=== PATIENT | male | born 1960 | race American Indian/Alaskan Native ===

== ENCOUNTER 2017-02-17 07:48 | Emergency (ER) | payer SELFPAY ==
--- NOTE | 2017-02-17 08:51 | XRay Report ---
LEFT FINGERS, 3 VIEWS History: Left thumb pain and swelling. Findings: There appears to be mild subluxation at the first metacarpophalangeal joint. Mild degenerative changes are also suspected. The remaining joint spaces are unremarkable. No fracture or bone lesion. Mild soft tissue swelling of the thumb is also suspected. Impression: Mild subluxation at the first metacarpophalangeal joint is suspected. Please correlate with the patient and consider further imaging with MRI if needed. No displaced fracture is appreciated.
[2017-02-17] MEDS ORDERED: TORADOL IM ONE (11:37)
--- NOTE | 2017-02-17 11:51 | Emergency Department Report ---
HPI - General Chief Complaint: Pain General Time Seen by Provider: 02/17/17 11:29 - HPI HPI: Loli 26 The patient is a 56-year-old male presenting with a chief complaint of joint pain. The patient states the past 3 months he has had pain and swelling in both ankles and both hands. The patient states he went to a free health screening at a adventism was given a "water pill", ibuprofen and tramadol. The patient states medications help temporarily of the swelling decreased for approximately one week. Patient states the symptoms then returned with pain in all joints. Patient states the pain is worse with movement. Patient denies shortness of breath or fever. The patient gives his pain a score of 8-9/10 Location: All joints Duration: 3 months Quality: Pain Severity: 8-9/10 Modifying factors: Movement increases pain Context: [see above] Mode of transportation: [not driving] ED Past Medical Hx - Past Medical History Hx Hypertension: Yes Additional medical history: OBESITY - Surgical History Past Surgical History?: No Additional Surgical History: RIGHT ELBOW SURGERY. HERNIA REPAIR - Family History Family history: no significant - Social History Smoking Status: Current Every Day Smoker Substance Use Type: Alcohol (occasional), Marijuana, Prescribed - Medications Home Medications: Home Medications Medication Instructions Recorded Confirmed Last Taken Type Ibuprofen [Motrin] 600 mg PO BID PRN 02/17/17 02/17/17 02/15/17 13:00 History Lisinopril [Zestril] 20 mg PO QDAY 02/17/17 02/17/17 02/17/17 07:00 History Prednisone [predniSONE 10 mg 10 mg PO .TAPER #1 tab.ds.pk 02/17/17 Unknown Rx (6-Day Pack, 21 Tabs)] Triamter/Hctz 37.5-25 mg 75 mg PO QDAY 02/17/17 02/17/17 02/17/17 03:00 History traMADol [Ultram 50 MG tab] 50 mg PO BID PRN #30 tablet 02/17/17 Unknown Rx traMADol [Ultram] 50 mg PO Q6HR PRN #20 tablet 02/17/17 Unknown Rx ED Review of Systems ROS: Stated complaint: JOINT PAIN Other details as noted in HPI Comment: All other systems reviewed and negative Constitutional: denies: chills, fever Eyes: denies: eye pain, eye discharge, vision change ENT: denies: ear pain, throat pain Respiratory: denies: cough, shortness of breath, wheezing Cardiovascular: denies: chest pain, palpitations Endocrine: no symptoms reported Gastrointestinal: denies: abdominal pain, nausea, diarrhea Genitourinary: denies: urgency, dysuria Musculoskeletal: arthralgia Skin: denies: rash, lesions Neurological: denies: headache, weakness, paresthesias Psychiatric: denies: anxiety, depression Hematological/Lymphatic: denies: easy bleeding, easy bruising Physical Exam - Physical Exam Vital Signs: Vital Signs 02/17/17 08:06 Temperature 98.7 F Pulse Rate 99 H Respiratory 18 Rate Blood Pressure 108/73 O2 Sat by Pulse 97 Oximetry Physical Exam: GENERAL: The patient is well-developed well-nourished male sitting on stretcher not appearing to be in acute distress. [] HEENT: Normocephalic. Atraumatic. Extraocular motions are intact. Patient has moist mucous membranes. NECK: Supple. Trachea midline CHEST/LUNGS: Clear to auscultation. There is no respiratory distress noted. HEART/CARDIOVASCULAR: Regular. There is no tachycardia. There is no gallop rub or murmur. ABDOMEN: Abdomen is soft, nontender. Patient has normal bowel sounds. There is no abdominal distention. SKIN: There is no rash. There is no pitting edema appreciated. There is no diaphoresis. NEURO: The patient is awake, alert, and oriented. The patient is cooperative. The patient has normal speech MUSCULOSKELETAL: There is no increased warmth of the joints appreciated. There is no evidence of acute injury. ED Course Vital Signs 02/17/17 08:06 Temperature 98.7 F Pulse Rate 99 H Respiratory 18 Rate Blood Pressure 108/73 O2 Sat by Pulse 97 Oximetry ED Medical Decision Making - Lab Data Result diagrams: 02/17/17 11:45 02/17/17 11:45 Laboratory Tests 02/17/17 02/17/17 11:45 11:45 WBC 15.5 H RBC 4.46 Hgb 14.0 Hct 41.5 MCV 93 MCH 31 MCHC 34 RDW 14.7 Plt Count 516 H Lymph % (Auto) 13.3 L [place] % (Auto) 6.6 Eos % (Auto) 0.8 Baso % (Auto) 0.4 Lymph # 2.1 [place] # 1.0 H Eos # 0.1 Baso # 0.1 Seg Neutrophils % 78.9 H Seg Neutrophils # 12.2 H Sodium 133 L Potassium 4.0 Chloride 93.0 L Carbon Dioxide 21 L Anion Gap 23 BUN 31 H Creatinine 1.8 H Estimated GFR 48 BUN/Creatinine Ratio 17.22 Glucose 85 Calcium 9.2 Total Bilirubin 0.50 AST 13 ALT 12 Alkaline Phosphatase 125 NT-Pro-B Natriuret Pep 17.33 Total Protein 8.6 H Albumin 4.3 Albumin/Globulin Ratio 1.0 - Radiology Data Radiology results: report reviewed (left thumb x-ray), image reviewed (left thumb x-ray) interpreted by me: Left thumb [id number] of left thumb MCP. No acute fracture Left thumb x-ray (read by radiologist)-mild subluxation of the first metacarpal phalangeal joint is suspected. This controlled with the patient consider further imaging with MRI if needed. No displaced fractures appreciated. - Differential Diagnosis polyarthralgia, rheumatoid arthritis, gout, CHF, hypoalbuminemia Critical care attestation.: If time is entered above; I have spent that time in minutes in the direct care of this critically ill patient, excluding procedure time. ED Disposition Clinical Impression: Polyarthralgia, Subluxation of left thumb, Renal insufficiency Disposition: DC-01 TO HOME OR SELFCARE Is pt being admited?: No Does the pt Need Aspirin: No Condition: Stable Instructions: Arthralgia (ED) Additional Instructions: Return to the emergency department immediately should you develop worsening symptoms, fever, inability to tolerate food or liquid or any other concerns. Prescriptions: Prednisone [predniSONE 10 mg (6-Day Pack, 21 Tabs)] 10 mg PO .TAPER #1 tab.ds.pk traMADol [Ultram] 50 mg PO Q6HR PRN #20 tablet PRN Reason: Pain traMADol [Ultram 50 MG tab] 50 mg PO BID PRN #30 tablet PRN Reason: Pain Referrals: [facility] [Outside] - 3-5 Days (Please follow up at the [facility] to be established as a patient) ANABELA ALVES MD [Staff Physician] - 3-5 Days (Dr. Alves is an orthopedic surgeon. Please follow up with him for further evaluation of your left thumb subluxation) BALBINA WAGNER MD [Staff Physician] - 3-5 Days (Dr. Wagner is a turn down man. Please follow up with him for further evaluation of your renal insufficiency) Time of Disposition: 12:38
[2017-02-17 11:59] LABS: Basophils % (Auto) 0.4 % (0.0-1.8); Eosinophils % (Auto) 0.8 % (0.0-4.3); Hematocrit 41.5 % (35.5-45.6); Mean Corpuscular HGB Conc 34 % (32-34); Mean Corpuscular Hemoglobin 31 pg (28-32); Mean Corpuscular Volume 93 fl (84-94); Platelet Count 516 K/mm3 (140-440); Red Blood Count 4.46 M/mm3 (3.65-5.03); Red Cell Distribution Width 14.7 % (13.2-15.2); White Blood Count 15.5 K/mm3 (4.5-11.0)
[2017-02-17 12:16] LABS: Albumin 4.3 g/dL (3.9-5); BUN/Creatinine Ratio 17.22; Bilirubin,Total 0.5 mg/dL (0.1-1.2); Calcium 9.2 mg/dL (8.4-10.2); Total Protein 8.6 g/dL (6.3-8.2)
[2017-02-17 14:51] VITALS: BP 110/74
== END 2017-02-17 14:00 | disposition home or self-care (01) ==
LOC: ED 07:48
DX: M25.50 Pain in unspecified joint (principal); S63.102A Unspecified subluxation of left thumb, initial encounter; N28.9 Disorder of kidney and ureter, unspecified; X58.XXXA Exposure to other specified factors, initial encounter; Y93.9 Activity, unspecified; Y92.9 Unspecified place or not applicable; Y99.9 Unspecified external cause status; F17.200 Nicotine dependence, unspecified, uncomplicated; F12.10 Cannabis abuse, uncomplicated
CPT/HCPCS: 29125; 36415; 73140; 80053; 83880; 85025; 96372; 99283; J1885

== ENCOUNTER 2017-03-04 08:03 | Emergency (ER) | payer SELFPAY ==
--- NOTE | 2017-03-04 08:54 | Emergency Department Report ---
- General Chief complaint: Pain General Stated complaint: JOINT PAIN Time Seen by Provider: 03/04/17 08:38 Source: patient, old records reviewed Mode of arrival: Ambulatory Limitations: No Limitations - History of Present Illness -: Gradual, month(s) Location: generalized Severity: moderate Quality: aching Consistency: constant, intermittent Improves with: medication (prednisone) Worsens with: none Context: other (no injury) Associated Symptoms: denies: chest pain, confusion, dark stools, diaphoresis, dysuria, easy bruising, fever/chills, headaches, loss of appetite, nausea/ vomiting, myalgias, rash, shortness of breath, syncope - Related Data Home Medications Medication Instructions Recorded Confirmed Last Taken Ibuprofen [Motrin] 600 mg PO BID PRN 02/17/17 02/17/17 02/15/17 13:00 Lisinopril [Zestril] 20 mg PO QDAY 02/17/17 02/17/17 02/17/17 07:00 Triamter/Hctz 37.5-25 mg 75 mg PO QDAY 02/17/17 02/17/17 02/17/17 03:00 Previous Rx's Medication Instructions Recorded Last Taken Type Prednisone [predniSONE 10 mg 10 mg PO .TAPER #1 tab.ds.pk 02/17/17 Unknown Rx (6-Day Pack, 21 Tabs)] traMADol [Ultram 50 MG tab] 50 mg PO BID PRN #30 tablet 02/17/17 Unknown Rx traMADol [Ultram] 50 mg PO Q6HR PRN #20 tablet 02/17/17 Unknown Rx Prednisone [predniSONE 10 mg 10 mg PO .TAPER #1 tab.ds.pk 03/04/17 Unknown Rx (6-Day Pack, 21 Tabs)] traMADol [Ultram] 50 mg PO Q6HR PRN #10 tablet 03/04/17 Unknown Rx Allergies Allergy/AdvReac Type Severity Reaction Status Date / Time No Known Allergies Allergy Unverified 02/17/17 07:55 ED Review of Systems ROS: Stated complaint: JOINT PAIN Other details as noted in HPI Comment: Unobtainable due to pts medical conditions Constitutional: no symptoms reported, see HPI Eyes: as per HPI. denies: eye pain ENT: as per HPI. denies: ear pain, throat pain Respiratory: no symptoms reported, see HPI. denies: cough, orthopnea Cardiovascular: as per HPI. denies: chest pain, palpitations, dyspnea on exertion, orthopnea Endocrine: no symptoms reported, see HPI. denies: excessive sweating, flushing Gastrointestinal: as per HPI. denies: abdominal pain, nausea, vomiting Genitourinary: as per HPI. denies: urgency, dysuria Musculoskeletal: as per HPI, arthralgia (gen joint pain), other (here for same recently). denies: back pain Skin: as per HPI. denies: rash, lesions Neurological: as per HPI. denies: headache, weakness Psychiatric: as per HPI. denies: anxiety, depression Hematological/Lymphatic: as per HPI. denies: easy bleeding ED Past Medical Hx - Past Medical History Previous Medical History?: Yes Hx Hypertension: Yes Additional medical history: OBESITY - Surgical History Past Surgical History?: Yes Additional Surgical History: RIGHT ELBOW SURGERY. HERNIA REPAIR - Family History Family history: no significant - Social History Smoking Status: Current Every Day Smoker Substance Use Type: Alcohol, Marijuana - Medications Home Medications: Home Medications Medication Instructions Recorded Confirmed Last Taken Type Ibuprofen [Motrin] 600 mg PO BID PRN 02/17/17 02/17/17 02/15/17 13:00 History Lisinopril [Zestril] 20 mg PO QDAY 02/17/17 02/17/17 02/17/17 07:00 History Prednisone [predniSONE 10 mg 10 mg PO .TAPER #1 tab.ds.pk 02/17/17 Unknown Rx (6-Day Pack, 21 Tabs)] Triamter/Hctz 37.5-25 mg 75 mg PO QDAY 02/17/17 02/17/17 02/17/17 03:00 History traMADol [Ultram 50 MG tab] 50 mg PO BID PRN #30 tablet 02/17/17 Unknown Rx traMADol [Ultram] 50 mg PO Q6HR PRN #20 tablet 02/17/17 Unknown Rx Prednisone [predniSONE 10 mg 10 mg PO .TAPER #1 tab.ds.pk 03/04/17 Unknown Rx (6-Day Pack, 21 Tabs)] traMADol [Ultram] 50 mg PO Q6HR PRN #10 tablet 03/04/17 Unknown Rx ED Physical Exam - General Limitations: No Limitations General appearance: alert, in no apparent distress - Head Head exam: Present: atraumatic, normocephalic - Eye Eye exam: Present: PERRL - ENT ENT exam: Present: normal exam, mucous membranes moist - Neck Neck exam: Present: normal inspection. Absent: tenderness, meningismus, full ROM, lymphadenopathy, thyromegaly - Respiratory Respiratory exam: Present: normal lung sounds bilaterally. Absent: respiratory distress, wheezes, rales, rhonchi, stridor - Cardiovascular Cardiovascular Exam: Present: regular rate, normal rhythm (90 on exam) - GI/Abdominal GI/Abdominal exam: Present: soft, normal bowel sounds. Absent: distended, tenderness, guarding, rebound, rigid, diminished bowel sounds - Rectal Rectal exam: Present: deferred - Extremities Exam Extremities exam: Present: normal inspection, full ROM. Absent: tenderness, normal capillary refill, pedal edema, joint swelling, calf tenderness - Back Exam Back exam: Present: normal inspection, full ROM. Absent: tenderness, CVA tenderness (R) - Neurological Exam Neurological exam: Present: alert, oriented X3, CN II-XII intact, normal gait, reflexes normal - Psychiatric Psychiatric exam: Present: normal affect, normal mood. Absent: depressed, agitated - Skin Skin exam: Present: warm, dry, intact - Assessment Assessment Interval: Baseline - Level of Consciousness 1a. Level of Consciousness: alert - LOC Questions 1b. LOC Questions: answers correctly - LOC Command 1c. LOC Commands: performs tasks correctly - Best Gaze 2. Best Gaze: normal - Visual 3. Visual: no visual loss - Facial Palsy 4. Facial Palsy: normal symmetrical movement - Motor Arm 5b. Motor Arm Right: no drift 5a. Motor Arm Left: no drift - Motor Leg 6a. Motor Leg Left: no drift 6b. Motor Leg Right: no drift - Limb Ataxia 7. Limb Ataxia: absent - Sensory 8. Sensory: normal - Best Language 9. Best Language: no aphasia - Dysarthria 10. Dysarthria: normal - Extinction and Inattention 11. Extinction/Inattention: no abnormality - Scoring Total Score: 0 Stroke Severity: No Stroke Symptoms ED Course Vital Signs 03/04/17 03/04/17 03/04/17 08:07 09:04 11:55 Temperature 99.2 F 98.6 F Pulse Rate 94 H 90 Respiratory 16 18 19 Rate Blood Pressure 111/73 Blood Pressure 105/77 [Left] O2 Sat by Pulse 98 98 Oximetry - Reevaluation(s) Reevaluation #1: 03/04/17 seen here recent for same waiting on ins card from new job gen joint pain no trauma see note abc intact vss no cp no sob non ill non toxic appearing no fever ambulatory Reevaluation #2: 03/04/17 labs noted discussed with Dr King medications and dc home w dc poc pt verbalizes understanding of poc ED Medical Decision Making - Lab Data Result diagrams: 03/04/17 09:12 03/04/17 09:12 - Medical Decision Making Case reviewed with Dr King. no antibiotics meds w dc poc - Differential Diagnosis ro systemic disease Critical care attestation.: If time is entered above; I have spent that time in minutes in the direct care of this critically ill patient, excluding procedure time. 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
[2017-03-04 09:24] LABS: Basophils % (Auto) 0.6 % (0.0-1.8); Eosinophils % (Auto) 0.5 % (0.0-4.3); Hematocrit 39.1 % (35.5-45.6); Mean Corpuscular HGB Conc 33 % (32-34); Mean Corpuscular Hemoglobin 31 pg (28-32); Mean Corpuscular Volume 93 fl (84-94); Platelet Count 471 K/mm3 (140-440); White Blood Count 18.9 K/mm3 (4.5-11.0)
[2017-03-04 09:31] LABS: Bilirubin,Urine NEG (Negative); Blood,Urine NEG (Negative); Ketones,Urine NEG (Negative); Leukocyte Esterase,Urine NEG (Negative); Nitrite,Urine NEG (Negative); Protein,Urine <15 mg/dL mg/dL (Negative); Urobilinogen,Urine < 2.0 mg/dL (<2.0); WBC,Urine < 1.0 /HPF (0.0-6.0)
[2017-03-04 09:45] LABS: Albumin 4.1 g/dL (3.9-5); Albumin/Globulin Ratio 1.1 %; BUN/Creatinine Ratio 20.66; Bilirubin,Total 0.2 mg/dL (0.1-1.2); Calcium 9.2 mg/dL (8.4-10.2); Chloride 95.6 mmol/L (98-107); Potassium 3.7 mmol/L (3.6-5.0); Total Protein 7.7 g/dL (6.3-8.2)
[2017-03-04 10:13] LABS: Erythrocyte Sedimentation Rate 45 mm/Hr (0-20)
--- NOTE | 2017-03-04 10:48 | XRay Report ---
CHEST TWO VIEWS: 03/04/17 08:03:00 CLINICAL: Hypertension. COMPARISON: None FINDINGS: Normal heart and pulmonary vasculature. The lungs are mildly hyperexpanded and clear.The bones and soft tissues are unremarkable. IMPRESSION: Mild pulmonary hyperinflation but otherwise normal.
[2017-03-04 11:56] VITALS: BP 105/77
== END 2017-03-04 12:19 | disposition home or self-care (01) ==
LOC: ED 08:03
DX: M19.90 Unspecified osteoarthritis, unspecified site (principal); R68.84 Jaw pain; I10 Essential (primary) hypertension; F17.200 Nicotine dependence, unspecified, uncomplicated; F12.10 Cannabis abuse, uncomplicated
CPT/HCPCS: 36415; 71020; 80053; 81001; 84550; 85025; 85652; 86140; 86618; 96372; 99284; J2930

== ENCOUNTER 2017-04-09 07:14 | Inpatient (IN) | payer OTHER ==
[2017-04-09 11:06] LABS: Hematocrit 34.7 % (35.5-45.6); Hemoglobin 11.9 gm/dl (11.8-15.2); Mean Corpuscular HGB Conc 34 % (32-34); Mean Corpuscular Hemoglobin 32 pg (28-32); Mean Corpuscular Volume 94 fl (84-94); Platelet Count 373 K/mm3 (140-440); Red Blood Count 3.68 M/mm3 (3.65-5.03); White Blood Count 15.9 K/mm3 (4.5-11.0)
[2017-04-09 11:27] LABS: Calcium 8.8 mg/dL (8.4-10.2); Chloride 94.5 mmol/L (98-107); Potassium 3.9 mmol/L (3.6-5.0)
--- NOTE | 2017-04-09 11:50 | Emergency Department Report ---
ED General Adult HPI - General Chief complaint: Pain General Stated complaint: JOINT PAIN Time Seen by Provider: 04/09/17 10:37 Source: patient Mode of arrival: Ambulatory Limitations: No Limitations - History of Present Illness Initial comments: PT c/o joint pain and swelling x a few days. PT states his feet and ankles are swollen. PT states he has had the pain for about three days and he noticed the swelling yesterday. PT states that he was seen in ED 1 month ago and dx with RA. PT states at that time, he was having pain and swelling in his upper ext. PT states he was given RX for steroids and Ultram. PT states Ultram does not help his pain. PT states the steroids helped decrease his pain. PT states he was given follow up with PCP and Medical Dir but due to insurance issues, he has not followed up. PT states he has an appointment with PCP MAY 04. MD Complaint: swelling -: Gradual, days(s) Location: left, right, lower extremity Severity scale (0 -10): 8 Quality: constant (dull pain ) Consistency: constant Improves with: none Worsens with: movement, other (ambulation ) Associated Symptoms: denies other symptoms. denies: chest pain, fever/chills, nausea/vomiting, shortness of breath, weakness Treatments Prior to Arrival: none - Related Data Home Medications Medication Instructions Recorded Confirmed Last Taken Ibuprofen [Motrin] 600 mg PO BID PRN 02/17/17 04/09/17 02/15/17 13:00 Lisinopril [Zestril] 20 mg PO QDAY 02/17/17 04/09/17 02/17/17 07:00 Triamter/Hctz 37.5-25 mg 75 mg PO QDAY 02/17/17 04/09/17 02/17/17 03:00 Previous Rx's Medication Instructions Recorded Last Taken Type Prednisone [predniSONE 10 mg 10 mg PO .TAPER #1 tab.ds.pk 02/17/17 Unknown Rx (6-Day Pack, 21 Tabs)] traMADol [Ultram 50 MG tab] 50 mg PO BID PRN #30 tablet 02/17/17 Unknown Rx traMADol [Ultram] 50 mg PO Q6HR PRN #20 tablet 02/17/17 Unknown Rx Prednisone [predniSONE 10 mg 10 mg PO .TAPER #1 tab.ds.pk 03/04/17 Unknown Rx (6-Day Pack, 21 Tabs)] traMADol [Ultram] 50 mg PO Q6HR PRN #10 tablet 03/04/17 Unknown Rx oxyCODONE /ACETAMINOPHEN [Percocet 1 tab PO Q6H PRN #10 tablet 04/10/17 Unknown Rx 5/325 mg] predniSONE [Deltasone] 10 mg PO QDAY #5 tab 04/10/17 Unknown Rx predniSONE [Deltasone] 20 mg PO QDAY #5 tab 04/10/17 Unknown Rx predniSONE [Deltasone] 50 mg PO QDAY #5 tab 04/10/17 Unknown Rx Allergies Allergy/AdvReac Type Severity Reaction Status Date / Time No Known Allergies Allergy Unverified 02/17/17 07:55 ED Review of Systems ROS: Stated complaint: JOINT PAIN Other details as noted in HPI Comment: All other systems reviewed and negative Constitutional: denies: chills, fever, malaise Respiratory: denies: shortness of breath, SOB with exertion, SOB at rest Cardiovascular: edema. denies: chest pain Musculoskeletal: as per HPI ED Past Medical Hx - Past Medical History Previous Medical History?: Yes Hx Hypertension: Yes Additional medical history: OBESITY, RA - Surgical History Past Surgical History?: Yes Additional Surgical History: RIGHT ELBOW SURGERY. HERNIA REPAIR - Social History Smoking Status: Current Every Day Smoker Substance Use Type: Alcohol - Medications Home Medications: Home Medications Medication Instructions Recorded Confirmed Last Taken Type Ibuprofen [Motrin] 600 mg PO BID PRN 02/17/17 04/09/17 02/15/17 13:00 History Lisinopril [Zestril] 20 mg PO QDAY 02/17/17 04/09/17 02/17/17 07:00 History Prednisone [predniSONE 10 mg 10 mg PO .TAPER #1 tab.ds.pk 02/17/17 04/09/17 Unknown Rx (6-Day Pack, 21 Tabs)] Triamter/Hctz 37.5-25 mg 75 mg PO QDAY 02/17/17 04/09/17 02/17/17 03:00 History traMADol [Ultram 50 MG tab] 50 mg PO BID PRN #30 tablet 02/17/17 04/09/17 Unknown Rx traMADol [Ultram] 50 mg PO Q6HR PRN #20 tablet 02/17/17 04/09/17 Unknown Rx Prednisone [predniSONE 10 mg 10 mg PO .TAPER #1 tab.ds.pk 03/04/17 04/09/17 Unknown Rx (6-Day Pack, 21 Tabs)] traMADol [Ultram] 50 mg PO Q6HR PRN #10 tablet 03/04/17 04/09/17 Unknown Rx oxyCODONE /ACETAMINOPHEN [Percocet 1 tab PO Q6H PRN #10 tablet 04/10/17 Unknown Rx 5/325 mg] predniSONE [Deltasone] 10 mg PO QDAY #5 tab 04/10/17 Unknown Rx predniSONE [Deltasone] 20 mg PO QDAY #5 tab 04/10/17 Unknown Rx predniSONE [Deltasone] 50 mg PO QDAY #5 tab 04/10/17 Unknown Rx ED Physical Exam - General Limitations: No Limitations General appearance: alert, in no apparent distress, obese (Morbidly ) - Head Head exam: Present: atraumatic, normocephalic, normal inspection - Eye Eye exam: Present: normal appearance, PERRL, EOMI. Absent: conjunctival injection - ENT ENT exam: Present: normal exam, mucous membranes moist, normal external ear exam - Neck Neck exam: Present: normal inspection, full ROM - Respiratory Respiratory exam: Present: normal lung sounds bilaterally. Absent: respiratory distress, chest wall tenderness - Cardiovascular Cardiovascular Exam: Present: regular rate, normal rhythm, normal heart sounds - GI/Abdominal GI/Abdominal exam: Present: soft. Absent: tenderness - Extremities Exam Extremities exam: Present: pedal edema. Absent: calf tenderness - Expanded Upper Extremity Exam Left General: Present: normal inspection Right General: Present: normal inspection - Expanded Lower Extremity Exam Left Lower Leg exam: Present: normal inspection. Absent: tenderness, erythema Ankle exam: Present: swelling. Absent: tenderness Foot/Toe exam: Present: full ROM, swelling. Absent: tenderness Neuro vascular tendon exam: Present: no vascular compromise Right Lower Leg exam: Present: normal inspection. Absent: tenderness, swelling Ankle exam: Present: swelling. Absent: normal inspection, tenderness Foot/Toe exam: Present: swelling. Absent: normal inspection, tenderness Neuro vascular tendon exam: Present: no vascular compromise - Back Exam Back exam: Present: normal inspection, full ROM. Absent: tenderness, CVA tenderness (R), CVA tenderness (L) - Neurological Exam Neurological exam: Present: alert, oriented X3, normal gait - Psychiatric Psychiatric exam: Present: normal affect, normal mood - Skin Skin exam: Present: warm, dry, intact ED Course Vital Signs 04/09/17 04/09/17 07:44 14:44 Temperature 98.8 F 97.6 F Pulse Rate 97 H 90 Respiratory 16 18 Rate Blood Pressure 110/59 Blood Pressure 114/64 [Right] O2 Sat by Pulse 97 99 Oximetry - Reevaluation(s) Reevaluation #1: 04/09/17 12:24 PT aware of abnormal lab findings. PT agrees to admission. 04/09/17 12:28 At this time, pt states on he was taking 2 tabs of Mortin every 2.5 hours 3-4 times. PT states he also took a few pills on Monday. - Consultations Consultation #1: 04/09/17 12:33 Dr Tang- will accept - Pulse Oximetry Interpretation Digit-Finger Initial Pulse Oximetry Readin Actions Taken: none ED Medical Decision Making - Lab Data Result diagrams: 04/10/17 07:46 04/10/17 07:46 Labs 04/09/17 04/09/17 10:49 10:49 WBC 15.9 H RBC 3.68 Hgb 11.9 Hct 34.7 L MCV 94 MCH 32 MCHC 34 RDW 16.0 H Plt Count 373 Add Manual Diff Complete Total Counted 100 Seg Neuts % (Manual) 80.0 H Band Neutrophils % 1.0 Lymphocytes % (Manual) 15.0 Reactive Lymphs % (Man) 0 Monocytes % (Manual) 4.0 Eosinophils % (Manual) 0 Basophils % (Manual) 0 Metamyelocytes % 0 Myelocytes % 0 Promyelocytes % 0 Blast Cells % 0 Nucleated RBC % Not Reportable Seg Neutrophils # Man 12.7 H Band Neutrophils # 0.2 Lymphocytes # (Manual) 2.4 Abs React Lymphs (Man) 0.0 Monocytes # (Manual) 0.6 Eosinophils # (Manual) 0.0 Basophils # (Manual) 0.0 Metamyelocytes # 0.0 Myelocytes # 0.0 Promyelocytes # 0.0 Blast Cells # 0.0 WBC Morphology Not Reportable Hypersegmented Neuts Not Reportable Hyposegmented Neuts Not Reportable Hypogranular Neuts Not Reportable Smudge Cells Not Reportable Toxic Granulation Not Reportable Toxic Vacuolation Not Reportable Dohle Bodies Not Reportable Pelger-Huet Anomaly Not Reportable Joseline Rods Not Reportable Platelet Estimate Consistent w auto Clumped Platelets Not Reportable Plt Clumps, EDTA Not Reportable Large Platelets Not Reportable Giant Platelets Not Reportable Platelet Satelliting Not Reportable Plt Morphology Comment Not Reportable RBC Morphology Not Reportable Dimorphic RBCs Not Reportable Polychromasia Not Reportable Hypochromasia Not Reportable Poikilocytosis Not Reportable Anisocytosis 1+ Microcytosis Not Reportable Macrocytosis Not Reportable Spherocytes Not Reportable Pappenheimer Bodies Not Reportable Sickle Cells Not Reportable Target Cells Not Reportable Tear Drop Cells Not Reportable Ovalocytes Not Reportable Helmet Cells Not Reportable [place] Bodies Not Reportable [place] Rings Not Reportable [place] Cells Not Reportable Bite Cells Not Reportable Crenated Cell Not Reportable Elliptocytes Not Reportable Acanthocytes (Spur) Not Reportable Rouleaux Not Reportable Hemoglobin C Crystals Not Reportable Schistocytes Not Reportable Malaria parasites Not Reportable Akbar Bodies Not Reportable Hem Pathologist Commnt No Carbon Dioxide 23 BUN 65 H Creatinine 2.5 H Estimated GFR 33 BUN/Creatinine Ratio 26.00 Glucose 106 H Calcium 8.8 VERBAL REPORT of LABS given NA- 132 K- 3.9 Chloride-94.5 anion gap - [address] King at 1220 04-09-17, who advises of admission due to acute renal failure - Differential Diagnosis RA, OA, renal insuffiency Critical Care Time: No Critical care attestation.: If time is entered above; I have spent that time in minutes in the direct care of this critically ill patient, excluding procedure time. ED Disposition Clinical Impression: Lower extremity edema, Morbid obesity Acute renal failure Qualifiers: Acute renal failure type: unspecified Qualified Code(s): N17.9 - Acute kidney failure, unspecified Disposition: OP ADMIT IP TO THIS HOSP Is pt being admited?: Yes Does the pt Need Aspirin: No Condition: Stable Time of Disposition: 12:40
[2017-04-09 12:01] LABS: Anisocytosis 1+; Basophils % (Manual) 0 % (0.0-1.8); Blastocytes % (Manual) 0 %; Eosinophils % (Manual) 0 % (0.0-4.3)
[2017-04-09 12:02] LABS: Diff Status Complete; Platelet Estimate Consistent w Auto
[2017-04-09] MEDS ORDERED: NACL 0.9% 1000 ML 1,000 ML IV ONE (12:39)
[2017-04-09] MEDS ORDERED: SODIUM CHLORIDE FLUSH SYRINGE 10 ML IV PRN (12:41)
[2017-04-09 13:40] LABS: Bacteria,Urine 1+ /HPF (Negative); Bilirubin,Urine NEG (Negative); Blood,Urine SM (Negative); Ketones,Urine NEG (Negative); Leukocyte Esterase,Urine MOD (Negative); Mucus,Urine FEW /HPF; Nitrite,Urine NEG (Negative); Protein,Urine <15 mg/dL mg/dL (Negative); Urobilinogen,Urine < 2.0 mg/dL (<2.0)
--- NOTE | 2017-04-09 14:32 | History and Physical Report ---
History of Present Illness Date of examination: 04/09/17 Date of admission: 04/09/17 12:41 Medications and Allergies Allergies Allergy/AdvReac Type Severity Reaction Status Date / Time No Known Allergies Allergy Unverified 02/17/17 07:55 Home Medications Medication Instructions Recorded Confirmed Last Taken Type Ibuprofen [Motrin] 600 mg PO BID PRN 02/17/17 04/09/17 02/15/17 13:00 History Lisinopril [Zestril] 20 mg PO QDAY 02/17/17 04/09/17 02/17/17 07:00 History Prednisone [predniSONE 10 mg 10 mg PO .TAPER #1 tab.ds.pk 02/17/17 04/09/17 Unknown Rx (6-Day Pack, 21 Tabs)] Triamter/Hctz 37.5-25 mg 75 mg PO QDAY 02/17/17 04/09/17 02/17/17 03:00 History traMADol [Ultram 50 MG tab] 50 mg PO BID PRN #30 tablet 02/17/17 04/09/17 Unknown Rx traMADol [Ultram] 50 mg PO Q6HR PRN #20 tablet 02/17/17 04/09/17 Unknown Rx Prednisone [predniSONE 10 mg 10 mg PO .TAPER #1 tab.ds.pk 03/04/17 04/09/17 Unknown Rx (6-Day Pack, 21 Tabs)] traMADol [Ultram] 50 mg PO Q6HR PRN #10 tablet 03/04/17 04/09/17 Unknown Rx Active Meds: Active Medications Sodium Chloride (Nacl 0.9% 1000 Ml) 1,000 mls @ 100 mls/hr IV BOLUS ONE Stop: 04/09/17 22:38 Last Admin: 04/09/17 13:15 Dose: 100 mls/hr Sodium Chloride (Sodium Chloride Flush Syringe 10 Ml) 10 ml IV PRN PRN PRN Reason: LINE FLUSH Exam - Constitutional Vitals: Temp Pulse Resp BP Pulse Ox 98.8 F 97 H 16 110/59 97 04/09/17 07:44 04/09/17 07:44 04/09/17 07:44 04/09/17 07:44 04/09/17 07:44 Results - Labs CBC & Chem 7: 04/09/17 10:49 04/09/17 10:49 Labs: Laboratory Last Values WBC 15.9 K/mm3 (4.5-11.0) H 04/09/17 10:49 RBC 3.68 M/mm3 (3.65-5.03) 04/09/17 10:49 Hgb 11.9 gm/dl (11.8-15.2) 04/09/17 10:49 Hct 34.7 % (35.5-45.6) L 04/09/17 10:49 MCV 94 fl (84-94) 04/09/17 10:49 MCH 32 pg (28-32) 04/09/17 10:49 MCHC 34 % (32-34) 04/09/17 10:49 RDW 16.0 % (13.2-15.2) H 04/09/17 10:49 Plt Count 373 K/mm3 (140-440) 04/09/17 10:49 Add Manual Diff Complete 04/09/17 10:49 Total Counted 100 04/09/17 10:49 Seg Neuts % (Manual) 80.0 % (40.0-70.0) H 04/09/17 10:49 Band Neutrophils % 1.0 % 04/09/17 10:49 Lymphocytes % (Manual) 15.0 % (13.4-35.0) 04/09/17 10:49 Reactive Lymphs % (Man) 0 % 04/09/17 10:49 Monocytes % (Manual) 4.0 % (0.0-7.3) 04/09/17 10:49 Eosinophils % (Manual) 0 % (0.0-4.3) 04/09/17 10:49 Basophils % (Manual) 0 % (0.0-1.8) 04/09/17 10:49 Metamyelocytes % 0 % 04/09/17 10:49 Myelocytes % 0 % 04/09/17 10:49 Promyelocytes % 0 % 04/09/17 10:49 Blast Cells % 0 % 04/09/17 10:49 Nucleated RBC % Not Reportable 04/09/17 10:49 Seg Neutrophils # Man 12.7 K/mm3 (1.8-7.7) H 04/09/17 10:49 Band Neutrophils # 0.2 K/mm3 04/09/17 10:49 Lymphocytes # (Manual) 2.4 K/mm3 (1.2-5.4) 04/09/17 10:49 Abs React Lymphs (Man) 0.0 K/mm3 04/09/17 10:49 Monocytes # (Manual) 0.6 K/mm3 (0.0-0.8) 04/09/17 10:49 Eosinophils # (Manual) 0.0 K/mm3 (0.0-0.4) 04/09/17 10:49 Basophils # (Manual) 0.0 K/mm3 (0.0-0.1) 04/09/17 10:49 Metamyelocytes # 0.0 K/mm3 04/09/17 10:49 Myelocytes # 0.0 K/mm3 04/09/17 10:49 Promyelocytes # 0.0 K/mm3 04/09/17 10:49 Blast Cells # 0.0 K/mm3 04/09/17 10:49 WBC Morphology Not Reportable 04/09/17 10:49 Hypersegmented Neuts Not Reportable 04/09/17 10:49 Hyposegmented Neuts Not Reportable 04/09/17 10:49 Hypogranular Neuts Not Reportable 04/09/17 10:49 Smudge Cells Not Reportable 04/09/17 10:49 Toxic Granulation Not Reportable 04/09/17 10:49 Toxic Vacuolation Not Reportable 04/09/17 10:49 Dohle Bodies Not Reportable 04/09/17 10:49 Pelger-Huet Anomaly Not Reportable 04/09/17 10:49 Joseline Rods Not Reportable 04/09/17 10:49 Platelet Estimate Consistent w auto 04/09/17 10:49 Clumped Platelets Not Reportable 04/09/17 10:49 Plt Clumps, EDTA Not Reportable 04/09/17 10:49 Large Platelets Not Reportable 04/09/17 10:49 Giant Platelets Not Reportable 04/09/17 10:49 Platelet Satelliting Not Reportable 04/09/17 10:49 Plt Morphology Comment Not Reportable 04/09/17 10:49 RBC Morphology Not Reportable 04/09/17 10:49 Dimorphic RBCs Not Reportable 04/09/17 10:49 Polychromasia Not Reportable 04/09/17 10:49 Hypochromasia Not Reportable 04/09/17 10:49 Poikilocytosis Not Reportable 04/09/17 10:49 Anisocytosis 1+ 04/09/17 10:49 Microcytosis Not Reportable 04/09/17 10:49 Macrocytosis Not Reportable 04/09/17 10:49 Spherocytes Not Reportable 04/09/17 10:49 Pappenheimer Bodies Not Reportable 04/09/17 10:49 Sickle Cells Not Reportable 04/09/17 10:49 Target Cells Not Reportable 04/09/17 10:49 Tear Drop Cells Not Reportable 04/09/17 10:49 Ovalocytes Not Reportable 04/09/17 10:49 Helmet Cells Not Reportable 04/09/17 10:49 [place] Bodies Not Reportable 04/09/17 10:49 [place] Rings Not Reportable 04/09/17 10:49 [place] Cells Not Reportable 04/09/17 10:49 Bite Cells Not Reportable 04/09/17 10:49 Crenated Cell Not Reportable 04/09/17 10:49 Elliptocytes Not Reportable 04/09/17 10:49 Acanthocytes (Spur) Not Reportable 04/09/17 10:49 Rouleaux Not Reportable 04/09/17 10:49 Hemoglobin C Crystals Not Reportable 04/09/17 10:49 Schistocytes Not Reportable 04/09/17 10:49 Malaria parasites Not Reportable 04/09/17 10:49 Akbar Bodies Not Reportable 04/09/17 10:49 Hem Pathologist Commnt No 04/09/17 10:49 Carbon Dioxide 23 mmol/L (22-30) 04/09/17 10:49 BUN 65 mg/dL (9-20) H 04/09/17 10:49 Creatinine 2.5 mg/dL (0.8-1.5) H 04/09/17 10:49 Estimated GFR 33 ml/min 04/09/17 10:49 BUN/Creatinine Ratio 26.00 % 04/09/17 10:49 Glucose 106 mg/dL (75-100) H 04/09/17 10:49 Calcium 8.8 mg/dL (8.4-10.2) 04/09/17 10:49 Urine Color Yellow (Yellow) 04/09/17 13:17 Urine Turbidity Clear (Clear) 04/09/17 13:17 Urine pH 5.0 (5.0-7.0) 04/09/17 13:17 Ur Specific [place] 1.013 (1.003-1.030) 04/09/17 13:17 Urine Protein <15 mg/dl mg/dL (Negative) 04/09/17 13:17 Urine Glucose (UA) Neg mg/dL (Negative) 04/09/17 13:17 Urine Ketones Neg mg/dL (Negative) 04/09/17 13:17 Urine Blood Sm (Negative) 04/09/17 13:17 Urine Nitrite Neg (Negative) 04/09/17 13:17 Urine Bilirubin Neg (Negative) 04/09/17 13:17 Urine Urobilinogen < 2.0 mg/dL (<2.0) 04/09/17 13:17 Ur Leukocyte Esterase Mod (Negative) 04/09/17 13:17 Urine WBC (Auto) 23.0 /HPF (0.0-6.0) H 04/09/17 13:17 Urine RBC (Auto) 3.0 /HPF (0.0-6.0) 04/09/17 13:17 U Epithel Cells (Auto) < 1.0 /HPF (0-13.0) 04/09/17 13:17 Urine Bacteria (Auto) 1+ /HPF (Negative) 04/09/17 13:17 Urine Mucus Few /HPF 04/09/17 13:17
[2017-04-09] MEDS ORDERED: ZOFRAN IV PRN (14:40)
[2017-04-09] MEDS ORDERED: MILK OF MAGNESIA PO PRN (14:40)
[2017-04-09] MEDS ORDERED: TYLENOL PO PRN (14:40)
[2017-04-09] MEDS ORDERED: DULCOLAX PR PRN (14:40)
[2017-04-09] MEDS ORDERED: DILAUDID IV PRN (14:41)
[2017-04-09] MEDS ORDERED: PERCOCET 5/325 PO PRN (14:41)
[2017-04-09] MEDS ORDERED: D5NS 1,000 ML IV SCH (15:00)
[2017-04-09] MEDS ORDERED: DILAUDID ONE (15:02)
[2017-04-09] MEDS ORDERED: NACL 0.9% 1000 ML 1,000 ML ONE (15:02)
[2017-04-09] MEDS: PEPCID IV SCH (22:34)
--- NOTE | 2017-04-10 07:20 | Event Note ---
Date: 04/09/17 See H/p in Reports Rheumatoid Flare UMER Htn
[2017-04-10 08:16] LABS: Hematocrit 34.2 % (35.5-45.6); Hemoglobin 11.3 gm/dl (11.8-15.2); Mean Corpuscular HGB Conc 33 % (32-34); Mean Corpuscular Hemoglobin 31 pg (28-32); Mean Corpuscular Volume 95 fl (84-94); Platelet Count 404 K/mm3 (140-440); Red Blood Count 3.62 M/mm3 (3.65-5.03); Red Cell Distribution Width 15.7 % (13.2-15.2); White Blood Count 15.6 K/mm3 (4.5-11.0)
[2017-04-10 08:43] LABS: Albumin 3.3 g/dL (3.9-5); Albumin/Globulin Ratio 0.9 %; BUN/Creatinine Ratio 24.7; Bilirubin,Total 0.2 mg/dL (0.1-1.2); Calcium 8.7 mg/dL (8.4-10.2); Chloride 97.9 mmol/L (98-107); Potassium 4.8 mmol/L (3.6-5.0); Total Protein 6.9 g/dL (6.3-8.2)
--- NOTE | 2017-04-10 08:52 | History and Physical Report ---
CHIEF COMPLAINT: Swelling of the ankles and feet and knees 3 days. HISTORY OF PRESENT ILLNESS: The patient is a 56-year-old -Serbian male who recently diagnosed with rheumatoid arthritis, has been having pain in all of the joints for the last 6 months off and on. He did not see his primary care because of insurance issues. The patient comes in today because of his bilateral ankle swelling and pain. Also, pain in both the hands and the knees for the last 3 days. Pain is about 10/10. The ankles are swollen. Hands are swollen. Knees are swollen. The patient is supposed to see his PCP in April. The patient had some workup done in the hospital and rheumatoid factor was positive. I could not find JOHN, DSDNA etc. PAST MEDICAL HISTORY: As mentioned, rheumatoid arthritis, hypertension, obesity. PAST SURGICAL HISTORY: Right elbow surgery secondary to accident. Abdominal wall hernia repair. SOCIAL HISTORY: He smokes about a pack a day. FAMILY HISTORY: Hypertension. CURRENT MEDICATIONS: Lisinopril 20 mg once a day and prednisolone Dosepak and ibuprofen 600 mg twice a day. REVIEW OF SYSTEMS: Fourteen-point review of systems done. Significant for swelling in the knee joints, ankle joints and both hands including the fingers. Otherwise, review of systems is negative. PHYSICAL EXAMINATION: GENERAL: Middle-aged male, cooperative during examination. VITAL SIGNS: Blood pressure 110/59, temperature 98.8, pulse is 97, respiratory rate is 16. HEENT: Unremarkable. Pupils are equal and reactive. NECK: Supple, no lymphadenopathy, no thyromegaly. LUNGS: Clear to auscultation and percussion. Good air entry. CARDIOVASCULAR: S1, S2 heard. No gallop, no murmur, no rub. Apical impulse in left fifth intercostal space and midclavicular line. ABDOMEN: Soft and benign. No hepatosplenomegaly. No guarding, no rigidity. Hernial orifices are normal. EXTREMITIES: Good pedal pulses. Swelling of the ankles present, warm to touch. The hands are also swollen, warm to touch. Both the knees are swollen and warm to touch. Range of motion is normal. LABORATORY DATA: White count is 15,900, hemoglobin and hematocrit are 11.9 and 34.7, platelet count is 323,000. BUN and creatinine are 65 and 2.5. Urine wbc's 23. I reviewed the old labs, rheumatoid factor was positive. Otherwise, no DNA, DSDNA, JOHN and sedimentation rate were done. C-reactive protein was 2.8 on 03/04/2017. Rheumatoid factor was 38 on 03/04/2017. ASSESSMENT AND PLAN: 1. Rheumatoid flare. Taking the clinical picture into consideration and rheumatoid factor being positive, value of on 03/04/2017 and taking his history of intermittent swelling of all the joints and pain in all the joints, I would consider rheumatoid arthritis is as the strong possibility. Ordered JOHN, DSDNA, cyclic citrullinated protein and sedimentation rate as part of the workup. Also, the patient started on low dose IV Solu-Medrol. No NSAIDs were used because of the high BUN and creatinine. 2. Acute kidney injury. The patient has a BUN and creatinine of 65 and 2.5, which is new. His last BUN and creatinine was 31 and 1.5 on 03/04/2017. Renal consulted. Acute kidney injury, probably precipitated by nonsteroidal anti-inflammatory drugs. The patient is on ibuprofen 600 twice a day. 3. Urinary tract infection. The patient initiated on Rocephin 1 g IV piggyback q. 24 hours. 4. Hypertension. Continue antihypertensives. 5. Deep venous thrombosis prophylaxis, Lovenox 40 mg subcutaneously daily. JOB# [id number] ISABELLA/NTS
[2017-04-10 09:16] LABS: Blastocytes % (Manual) 0 %
[2017-04-10 09:17] LABS: Anisocytosis 1+; Diff Status Complete; Target Cells Few
--- NOTE | 2017-04-10 09:31 | Progress Note ---
Assessment and Plan Acute renal failure - Patient had last BUN and creatinine of 31 and 1.5 on 03/04/2017 - He presented with creatinine of 2.5 - Could be related to nonsteroidal anti-inflammatory drugs, he was taking ibuprofen 600 MG twice a day - We'll continue IV fluid hydration, avoid nephrotoxins - Nephrology consulted - Today creatinine improved to 1.7, which is almost his baseline Acute flare of rheumatoid arthritis - Started on low-dose IV Solu-Medrol - R damage in the, DS DNA, CCP and ESR UTI - Placed on Rocephin Hypertension - Resume home medications DVT prophylaxis Lovenox 40 MG subcutaneous daily Brief history: The patient is a 56-year-old -[place] male recently diagnosed with rheumatoid arthritis presented to the hospital with bilateral multiple swelling and pain, including knee and ankle and hands. He also noted to have creatinine of 2.5 and UTI on admission Subjective Date of service: 04/10/17 Interval history: Patient seen and examined. Medical records and medication list reviewed. No acute event overnight noted by the RN. Patient denies any chest pain or difficulty breathing. Patient is tolerating diet. Discussed plan of care at bedside with patient. Objective - Exam Narrative Exam: GENERAL: well-developed and well-nourished lying on bed appeared to be in no discomfort. HEENT: Normocephalic. Atraumatic. No conjunctival congestion or icterus. Patient has moist mucous membranes. NECK: Supple. Trachea midline. CHEST/LUNGS: Clear to auscultated bilaterally, breathing nonlabored. No wheezes crackles or rhonchi. HEART/CARDIOVASCULAR: Regular in rate and rhythm. S1 and S2 positive. ABDOMEN: Abdomen is soft, nontender. Patient has normal bowel sounds. SKIN: There is no rash. Warm and dry. NEURO: No focal motor deficit. Follows command. MUSCULOSKELETAL: No joint effusion or tenderness. EXTRIMITY: No edema, no cyanosis or clubbing. PSYCH: Cooperative. - Constitutional Vitals: Vital Signs - 12hr 04/09/17 04/10/17 23:41 07:52 Temperature 98.8 F 98.3 F Pulse Rate 80 Respiratory 20 22 Rate Blood Pressure 117/57 96/58 O2 Sat by Pulse 95 Oximetry - Labs CBC & Chem 7: 04/10/17 07:46 04/10/17 07:46 Labs: Abnormal lab results 0904/10/17 04/10/17 Range/Units 13:17 07:46 07:46 WBC 15.6 H (4.5-11.0) K/mm3 RBC 3.62 L (3.65-5.03) M/mm3 Hgb 11.3 L (11.8-15.2) gm/dl Hct 34.2 L (35.5-45.6) % MCV 95 H (84-94) fl RDW 15.7 H (13.2-15.2) % Lymphocytes % (Manual) 7.0 L (13.4-35.0) % Seg Neutrophils # Man 14.4 H (1.8-7.7) K/mm3 Lymphocytes # (Manual) 1.1 L (1.2-5.4) K/mm3 Sodium 134 L (137-145) mmol/L Chloride 97.9 L (98-107) mmol/L BUN 42 H (9-20) mg/dL Creatinine 1.7 H (0.8-1.5) mg/dL Glucose 179 H (75-100) mg/dL Albumin 3.3 L (3.9-5) g/dL Urine WBC (Auto) 23.0 H (0.0-6.0) /HPF
--- NOTE | 2017-04-10 09:39 | Consultation ---
History of Present Illness - Reason for Consult Consult date: 04/10/17 acute renal failure, chronic renal failure - History of Present Illness The patient is a 56 YO AAM with medical history significant for Morbid Obesity, Hypertension, Tobacco smoking and recent diagnosis or Gouty arthritis / Rhematoid arthritis presented to the hospital with 3-4 days h/o bilateral ankle and knee swelling and pain. 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 The symptoms are getting worse. He hasn't seen a Manager Biostatistics yet. Patient took Ibuprofen for about 3 days. His baseline creatinine is unknown. His creatinine on admission was 2.5 and has improved to 1.7 today. His creatinine level during the previous ER visits was around 1.5. Patient denies any h/o recurrent UTIs, kidney stone or family h/o CKD / ESRD. Past History Past Medical History: hypertension, other (morbid obesity) Medications and Allergies Allergies Allergy/AdvReac Type Severity Reaction Status Date / Time No Known Allergies Allergy Unverified 02/17/17 07:55 Home Medications Medication Instructions Recorded Confirmed Last Taken Type Ibuprofen [Motrin] 600 mg PO BID PRN 02/17/17 04/09/17 02/15/17 13:00 History Lisinopril [Zestril] 20 mg PO QDAY 02/17/17 04/09/17 02/17/17 07:00 History Prednisone [predniSONE 10 mg 10 mg PO .TAPER #1 tab.ds.pk 02/17/17 04/09/17 Unknown Rx (6-Day Pack, 21 Tabs)] Triamter/Hctz 37.5-25 mg 75 mg PO QDAY 02/17/17 04/09/17 02/17/17 03:00 History traMADol [Ultram 50 MG tab] 50 mg PO BID PRN #30 tablet 02/17/17 04/09/17 Unknown Rx traMADol [Ultram] 50 mg PO Q6HR PRN #20 tablet 02/17/17 04/09/17 Unknown Rx Prednisone [predniSONE 10 mg 10 mg PO .TAPER #1 tab.ds.pk 03/04/17 04/09/17 Unknown Rx (6-Day Pack, 21 Tabs)] traMADol [Ultram] 50 mg PO Q6HR PRN #10 tablet 03/04/17 04/09/17 Unknown Rx oxyCODONE /ACETAMINOPHEN [Percocet 1 tab PO Q6H PRN #10 tablet 04/10/17 Unknown Rx 5/325 mg] predniSONE [Deltasone] 10 mg PO QDAY #5 tab 04/10/17 Unknown Rx predniSONE [Deltasone] 20 mg PO QDAY #5 tab 04/10/17 Unknown Rx predniSONE [Deltasone] 50 mg PO QDAY #5 tab 04/10/17 Unknown Rx Active Meds: Active Medications Acetaminophen (Tylenol) 650 mg PO Q4H PRN PRN Reason: Pain MILD(1-3)/Fever >100.5/ZAMBRANO Bisacodyl (Dulcolax) 10 mg NV QDAY PRN PRN Reason: Constipation unrelieved by MOM Famotidine (Pepcid) 20 mg IV BID [facility] Last Admin: 04/09/17 22:34 Dose: 20 mg Hydromorphone HCl (Dilaudid) 0.5 mg IV Q3H PRN PRN Reason: Pain , Severe (7-10) Last Admin: 04/09/17 15:15 Dose: 0.5 mg Dextrose/Sodium Chloride (D5ns) 1,000 mls @ 75 mls/hr IV DIRECT TIFFANIE Stop: 04/10/17 14:45 Last Admin: 04/10/17 05:03 Dose: 75 mls/hr Ceftriaxone Sodium (Rocephin/Ns 1 Gm/50 Ml) 1 gm in 50 mls @ 100 mls/hr IV Q24HR [facility] PRN Reason: Protocol Magnesium Hydroxide (Milk Of Magnesia) 30 ml PO Q4H PRN PRN Reason: Constipation Methylprednisolone Sodium Succinate (Solu-Medrol) 60 mg IV Q8H [facility] Last Admin: 04/10/17 08:51 Dose: 60 mg Ondansetron HCl (Zofran) 4 mg IV Q8H PRN PRN Reason: N/V unrelieved by Reglan Oxycodone/Acetaminophen (Percocet 5/325) 1 tab PO Q6H PRN PRN Reason: Pain, Moderate (4-6) Sodium Chloride (Sodium Chloride Flush Syringe 10 Ml) 10 ml IV PRN PRN PRN Reason: LINE FLUSH Review of Systems Constitutional: no weight loss, no weight gain, no fever, no chills, no anorexia , no weakness, no poor appetite Ears, nose, mouth and throat: no sinus pain, no epistaxis Cardiovascular: high blood pressure, leg edema, no chest pain, no orthopnea, no lightheadedness, no shortness of breath Respiratory: no cough, no shortness of breath, no dyspnea on exertion Gastrointestinal: no abdominal pain, no nausea, no vomiting, no diarrhea, no melena Genitourinary Male: no dysuria, no hematuria Rectal: no bleeding Musculoskeletal: redness of joints, hot joints, morning stiffness, no neck pain , no low back pain, no muscle weakness Integumentary: no rash, no sores, no wounds, no jaundice Neurological: no paralysis, no weakness, no seizures, no syncope, no headaches, no migraines Psychiatric: no memory loss, no change in appetite Endocrine: no polydipsia, no weight change Hematologic/Lymphatic: no easy bruising, no easy bleeding Exam - Vital Signs Vital signs: Vital Signs Temp Pulse Resp BP Pulse Ox 98.8 F 97 H 16 110/59 97 04/09/17 07:44 04/09/17 07:44 04/09/17 07:44 04/09/17 07:44 04/09/17 07:44 - General Appearance General appearance: well-developed, well-nourished, appears stated age, obese, other (no distress) EENT: ATNC, PERRL, mucous membranes moist, hearing intact, vision intact Neck: Present: neck supple, trachea midline Respiratory: Clear to Ascultation Heart: regular, S1S2, no murmurs Gastrointestinal: Present: normoactive bowel sounds, obese. Absent: tenderness , distended Integumentary: no rash Neurologic: no focal deficit, no asterixis, alert and oriented x3, strength 5/5 Musculoskeletal: Present: other (1+ edema of both LEs noted, bilateral knee and ankles joints are swollen & tender to palpate) Psychiatric: mood/affect appropriate, cooperative Results - Lab Results 04/10/17 07:46 04/10/17 07:46 Most recent lab results Calcium 8.7 mg/dL (8.4-10.2) 04/10/17 07:46 - Image Kidney/bladder ultrasound: report reviewed Assessment and Plan - Patient Problems (1) UMER (acute kidney injury) Current Visit: Yes Status: Acute Plan to address problem: Acute kidney injury superimposed on CKD stage 3 in the setting of volume depletion, diuretics and NSAIDs. Renal function is better. BP is borderline low. BP meds are on hold. CKD likely secondary to Hypertensive Nephropathy. Avoid NSAIDs. (2) Volume depletion Current Visit: Yes Status: Acute Plan to address problem: Continue IV fluids. (3) Rheumatoid arthritis flare Current Visit: Yes Status: Acute Plan to address problem: On Prednisone. (4) Leukocytosis Current Visit: Yes Status: Acute Qualifiers: Leukocytosis type: L
[2017-04-10] MEDS ORDERED: ROCEPHIN/NS 1 GM/50 ML 1 GM/50 ML BAG IV SCH (10:00)
[2017-04-10] MEDS ORDERED: PEPCID PO SCH (10:15)
[2017-04-10] MEDS: PEPCID IV SCH (11:14)
--- NOTE | 2017-04-10 13:03 | Ultrasound Report ---
ULTRASOUND RENAL BILATERAL HISTORY: Acute renal failure. TECHNIQUE: transabdominal ultrasound with color Doppler interrogation. FINDINGS: The right kidney measures 11.3 x 5.8 x 6.7cm. Right renal cortex: 1.4cm. The left kidney measures 13.0 x 6.0 x 7.3cm. Left renal cortex: 2.3cm. The kidneys are normal size, contour and position. There is increased renal parenchymal echotexture bilaterally. Corticomedullary differentiation is preserved. No evidence for cystic disease, mass, nephrolithiasis, hydronephrosis or perinephric fluid. The views of the bladder and the region of the ureters appear normal. IMPRESSION: Slightly echogenic kidneys consistent with nonspecific renal parenchymal disease. No obstructive uropathy.
--- NOTE | 2017-04-10 13:25 | Discharge Summary ---
Providers - Providers Date of Admission: 04/09/17 12:41 Date of discharge: 04/10/17 Attending physician: DYLON CHRISTENSEN 04/10/17 07:21 Consult to Physician [CONS] Routine Consulting Provider: MIGDALIA ANDERSON Reason For Exam: UMER Place consult to:: dr. anderson Notified:: office Phone number called:: Was contact made?: Yes If yes, spoke with:: zackery Time called:: 09:44 Primary care physician: THREAD WEAVER Hospitalization Condition: Stable Hospital course: Discharge diagnosis and management: Acute renal failure - Patient had last BUN and creatinine of 31 and 1.5 on 03/04/2017 - He presented with creatinine of 2.5 - Could be related to nonsteroidal anti-inflammatory drugs, he was taking ibuprofen 600 MG twice a day - We'll continue IV fluid hydration, avoid nephrotoxins - Nephrology consulted - Today creatinine improved to 1.7, which is almost his baseline Acute flare of rheumatoid arthritis - Started on low-dose IV Solu-Medrol - R damage in the, DS DNA, CCP and ESR UTI - Placed on Rocephin Hypertension - Resume home medications DVT prophylaxis Lovenox 40 MG subcutaneous daily Brief history: The patient is a 56-year-old -Citizen Of [place] male recently diagnosed with rheumatoid arthritis presented to the hospital with bilateral multiple swelling and pain, including knee and ankle and hands. He also noted to have creatinine of 2.5 and UTI on admission Time spent for discharge: 32 minutes Core Measure Documentation - Palliative Care Palliative Care/ Comfort Measures: Not Applicable - Core Measures Any of the following diagnoses?: none Exam - Constitutional Vitals: Temp Pulse Resp BP Pulse Ox 98.3 F 80 22 96/58 95 04/10/17 07:52 04/10/17 07:52 04/10/17 07:52 04/10/17 07:52 04/10/17 07:52 General appearance: Present: no acute distress, well-nourished - EENT Eyes: Present: PERRL ENT: hearing intact, clear oral mucosa - Neck Neck: Present: supple, normal ROM - Respiratory Respiratory effort: normal Respiratory: bilateral: CTA - Cardiovascular Heart Sounds: Present: S1 & S2. Absent: rub, click - Extremities Extremities: pulses symmetrical, No edema Peripheral Pulses: within normal limits - Abdominal General gastrointestinal: Present: soft, non-tender, non-distended, normal bowel sounds - Integumentary Integumentary: Present: clear, warm, dry - Musculoskeletal Musculoskeletal: gait normal, strength equal bilaterally - Psychiatric Psychiatric: appropriate mood/affect, intact judgment & insight - Neurologic Neurologic: CNII-XII intact, moves all extremities Plan Activity: advance as tolerated Weight Bearing Status: Weight Bear as Tolerated Diet: renal Additional Instructions: 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 May go to work from tomorrow; 04/11/17 Follow up with: PRIMARY CARE, [Primary Care Provider] - 3-5 Days Prescriptions: oxyCODONE /ACETAMINOPHEN [Percocet 5/325 mg] 1 tab PO Q6H PRN #10 tablet PRN Reason: Pain, Moderate (4-6) predniSONE [Deltasone] 10 mg PO QDAY #5 tab predniSONE [Deltasone] 20 mg PO QDAY #5 tab predniSONE [Deltasone] 50 mg PO QDAY #5 tab
[2017-04-10 16:14] VITALS: BP 119/71
== END 2017-04-10 17:10 | disposition home or self-care (01) | DRG 546 ==
LOC: ED 07:14 → 3A 12:41
PROVIDERS: ADMIT Internal Medicine; ATTEND Internal Medicine
DX: M06.9 Rheumatoid arthritis, unspecified (principal); N17.9 Acute kidney failure, unspecified; N39.0 Urinary tract infection, site not specified; Z68.43 Body mass index [BMI] 50.0-59.9, adult; E66.01 Morbid (severe) obesity due to excess calories; F17.200 Nicotine dependence, unspecified, uncomplicated; N18.3 Chronic kidney disease, stage 3 (moderate); I12.9 Hypertensive chronic kidney disease with stage 1 through stage 4 chronic kidney disease, or unspecified chronic kidney disease; E86.9 Volume depletion, unspecified; D72.829 Elevated white blood cell count, unspecified; Z72.89 Other problems related to lifestyle
CPT/HCPCS: 36415; 76770; 80048; 80053; 81001; 85007; 85025; 85652; 86038; 86200; 86225; 99406; J0696; J1170; J2920; J7030; J7042

== ENCOUNTER 2017-07-19 17:43 | Emergency (ER) | payer OTHER ==
[2017-07-20 03:11] VITALS: BP 137/90
== END 2017-07-20 12:12 | disposition left against medical advice (07) ==
LOC: ED 17:43
DX: Z53.21 Procedure and treatment not carried out due to patient leaving prior to being seen by health care provider (principal)

== ENCOUNTER 2018-07-23 11:56 | Emergency (ER) | payer OTHER ==
--- NOTE | 2018-07-23 12:25 | Emergency Department Report ---
ED General Adult HPI - General Chief complaint: Chest Pain Stated complaint: CHEST PAIN Time Seen by Provider: 07/23/18 12:18 Source: patient Mode of arrival: Ambulatory Limitations: No Limitations - History of Present Illness Initial comments: Patient is a 58-year-old male with history of rheumatoid arthritis and hypertension. Patient presented to the ER complaining of diffuse chest pain associated with cough and congestion. Patient stated that he has been having runny nose also. Patient describes his chest pain as diffuse and mainly when he started coughing, it is aching in nature. Patient denied any fever or chills. - Related Data Home Medications Medication Instructions Recorded Confirmed Last Taken Allopurinol 100 mg PO DAILY 07/23/18 07/23/18 Unknown Lisinopril 20 mg PO 07/23/18 Unknown sulfaSALAzine [Azulfidine] 500 mg PO BID 07/23/18 07/23/18 Unknown Allergies Allergy/AdvReac Type Severity Reaction Status Date / Time No Known Allergies Allergy Unverified 02/17/17 07:55 ED Review of Systems ROS: Stated complaint: CHEST PAIN Other details as noted in HPI Comment: All other systems reviewed and negative Constitutional: denies: chills, fever Respiratory: cough. denies: orthopnea, shortness of breath, SOB with exertion, SOB at rest, stridor, wheezing Cardiovascular: chest pain. denies: palpitations, dyspnea on exertion, orthopnea Gastrointestinal: denies: abdominal pain, nausea, vomiting, diarrhea, constipation, hematemesis, melena Neurological: denies: headache ED Past Medical Hx - Past Medical History Hx Hypertension: Yes Hx Congestive Heart Failure: No Hx Diabetes: No Hx Arthritis: Yes (RA) Hx Asthma: No Hx COPD: No Hx HIV: No Additional medical history: OBESITY, RA,gout - Surgical History Additional Surgical History: RIGHT ELBOW SURGERY. HERNIA REPAIR - Social History Smoking Status: Current Every Day Smoker Substance Use Type: None - Medications Home Medications: Home Medications Medication Instructions Recorded Confirmed Last Taken Type Allopurinol 100 mg PO DAILY 07/23/18 07/23/18 Unknown History Lisinopril 20 mg PO 07/23/18 Unknown History sulfaSALAzine [Azulfidine] 500 mg PO BID 07/23/18 07/23/18 Unknown History ED Physical Exam - General Limitations: No Limitations General appearance: alert, in no apparent distress - Head Head exam: Present: atraumatic, normocephalic, normal inspection - ENT ENT exam: Present: normal exam, normal orophraynx, mucous membranes moist - Neck Neck exam: Present: normal inspection, full ROM. Absent: tenderness, meningismus, lymphadenopathy, thyromegaly - Respiratory Respiratory exam: Present: wheezes, prolonged expiratory. Absent: respiratory distress, rales, rhonchi, stridor, chest wall tenderness, accessory muscle use, decreased breath sounds - Cardiovascular Cardiovascular Exam: Present: tachycardia - GI/Abdominal GI/Abdominal exam: Present: soft, normal bowel sounds. Absent: distended, tenderness, guarding, rebound, rigid, mass, bruit, pulsatile mass, hernia - Extremities Exam Extremities exam: Present: normal inspection, full ROM, normal capillary refill - Back Exam Back exam: Present: normal inspection, full ROM. Absent: CVA tenderness (R), CVA tenderness (L), muscle spasm, paraspinal tenderness, vertebral tenderness - Neurological Exam Neurological exam: Present: alert, oriented X3, CN II-XII intact, normal gait, reflexes normal - Skin Skin exam: Present: warm, intact, normal color ED Course Vital Signs 07/23/18 12:08 Temperature 97.9 F Pulse Rate 108 H Respiratory 22 Rate Blood Pressure 146/91 O2 Sat by Pulse 93 Oximetry ED Medical Decision Making - Lab Data Result diagrams: 07/23/18 12:24 07/23/18 12:24 - EKG Data -: EKG Interpreted by Wi EKG shows normal: sinus rhythm Rate: normal - EKG Data Interpretation: no acute changes - Radiology Data Radiology results: report reviewed Chest x-ray is unremarkable. - Medical Decision Making Patient is a 58-year-old male with history of rheumatoid arthritis and hypertension. Patient presented to the ER complaining of diffuse chest pain associated with cough and congestion. Patient stated that he has been having runny nose also. Patient describes his chest pain as diffuse and mainly when he started coughing, it is aching in nature. Patient denied any fever or chills. Patient stated that he is feeling much better. Patient received albuterol and Atrovent treatment and his symptoms significantly improved. EKG is unremarkable. Chest x-ray is negative for acute finding. Troponin is negative. Patient symptoms is most likely acute bronchitis. I will start patient on amoxicillin and albuterol as needed. Critical care attestation.: If time is entered above; I have spent that time in minutes in the direct care of this critically ill patient, excluding procedure time. ED Disposition Clinical Impression: Acute bronchitis, Atypical chest pain Disposition: TO HOME OR SELFCARE Is pt being admited?: No Condition: Stable Instructions: Acute Bronchitis (ED), Chest Pain (ED) Referrals: PRIMARY CARE, [Primary Care Provider] - 3-5 Days
[2018-07-23] MEDS ORDERED: PROVENTIL IH ONE (12:26)
[2018-07-23] MEDS ORDERED: ATROVENT IH ONE (12:26)
[2018-07-23 12:33] LABS: Basophils % (Auto) 0.4 % (0.0-1.8); Eosinophils # (Auto) 0.1 K/mm3 (0.0-0.4); Eosinophils % (Auto) 0.7 % (0.0-4.3); Hematocrit 41.3 % (35.5-45.6); Hemoglobin 14.2 gm/dl (11.8-15.2); Lymphocytes # (Auto) 1.4 K/mm3 (1.2-5.4); Mean Corpuscular HGB Conc 35 % (32-34); Mean Corpuscular Volume 93 fl (84-94); Monocytes # (Auto) 0.7 K/mm3 (0.0-0.8); Monocytes % (Auto) 5.7 % (0.0-7.3); Platelet Count 335 K/mm3 (140-440); Red Blood Count 4.44 M/mm3 (3.65-5.03); Red Cell Distribution Width 15.3 % (13.2-15.2)
--- NOTE | 2018-07-23 12:34 | XRay Report ---
AP CHEST: HISTORY: chest pain AP view of the chest demonstrates a normal mediastinal and cardiac contour with clear lungs and normal bony and soft tissue structures. No significant change since 03/04/17. IMPRESSION: Unremarkable AP chest.
[2018-07-23 12:58] LABS: Alanine Aminotransferase 16 units/L (7-56); Albumin 3.6 g/dL (3.9-5); BUN/Creatinine Ratio 9; Blood Urea Nitrogen 11 mg/dL (9-20); Calcium 8.5 mg/dL (8.4-10.2); Hemolysis Index 13
[2018-07-23 14:10] VITALS: BP 108/69
== END 2018-07-23 14:11 | disposition home or self-care (01) ==
LOC: ED 11:56
DX: J40 Bronchitis, not specified as acute or chronic (principal); I10 Essential (primary) hypertension; M19.90 Unspecified osteoarthritis, unspecified site; F17.200 Nicotine dependence, unspecified, uncomplicated
CPT/HCPCS: 36415; 71045; 80053; 83880; 84484; 85025; 93005; 93010; 94640; 99284

== ENCOUNTER 2019-06-25 09:35 | Emergency (ER) | payer OTHER ==
[2019-06-25 09:47] VITALS: BP 162/100
--- NOTE | 2019-06-25 11:55 | Emergency Department Report ---
Abscess Boil HPI - HPI Chief Complaint: Skin/Abscess/Foreign Body Stated Complaint: BOIL Time Seen by Provider: 06/25/19 11:54 Duration: 3 Days Location: Lower Extremity Severity: Mild History: Yes Pain, No Fever, No Purulent Drainage, No Numbness, No Foreign Body, No Previous History, No Insect Bite HPI: 59 yo comes to ER with draining boil of right inner thigh. No fever. Has had boil before. Taking no med for this at home. Home Medications: Home Medications Medication Instructions Recorded Confirmed Last Taken Allopurinol 100 mg PO DAILY 07/23/18 07/23/18 Unknown Lisinopril 20 mg PO 07/23/18 Unknown sulfaSALAzine [Azulfidine] 500 mg PO BID 07/23/18 07/23/18 Unknown Previous Rx's Medication Instructions Recorded Last Taken Type cephALEXin [Keflex] 500 mg PO Q8H #30 cap 06/25/19 Unknown Rx Allergies/Adverse Reactions: Allergies Allergy/AdvReac Type Severity Reaction Status Date / Time No Known Allergies Allergy Unverified 02/17/17 07:55 ED Review of Systems ROS: Stated complaint: BOIL Other details as noted in HPI Comment: All other systems reviewed and negative ED Past Medical Hx - Past Medical History Previous Medical History?: Yes Hx Hypertension: Yes Hx Congestive Heart Failure: No Hx Diabetes: No Hx Arthritis: Yes (RA) Hx Asthma: No Hx COPD: No Hx HIV: No Additional medical history: OBESITY, RA,gout - Surgical History Past Surgical History?: Yes Additional Surgical History: RIGHT ELBOW SURGERY. HERNIA REPAIR - Family History Family history: no significant - Social History Smoking Status: Current Every Day Smoker Substance Use Type: None - Medications Home Medications: Home Medications Medication Instructions Recorded Confirmed Last Taken Type Allopurinol 100 mg PO DAILY 07/23/18 07/23/18 Unknown History Lisinopril 20 mg PO 07/23/18 Unknown History sulfaSALAzine [Azulfidine] 500 mg PO BID 07/23/18 07/23/18 Unknown History cephALEXin [Keflex] 500 mg PO Q8H #30 cap 06/25/19 Unknown Rx ED Abscess Boil Physical Exam - Exam General: Vital signs noted. No distress. Alert and acting appropriately. Size: 2 cm Exam: Yes Tenderness, Yes Normal Neurologic Exam, Yes Normal Circulation, No Fluctuance, No Surrounding Cellulites/Erythema, No Lymphangitis, No Crepitation, No Heart Murmur I & D Note - I & D Note I & D Note: draining ED Course Vital Signs 06/25/19 09:46 Temperature 98.2 F Pulse Rate 102 H Respiratory 18 Rate Blood Pressure 162/100 [Right] O2 Sat by Pulse 94 Oximetry Critical care attestation.: If time is entered above; I have spent that time in minutes in the direct care of this critically ill patient, excluding procedure time. ED Medical Decision Making - Medical Decision Making boil is already draining no signs sepsis vss no fever non ill wound care dc home with dc plan of care and pcp follow up Vital Signs 06/25/19 09:46 Temperature 98.2 F Pulse Rate 102 H Respiratory 18 Rate Blood Pressure 162/100 [Right] O2 Sat by Pulse 94 Oximetry - Differential Diagnosis boil/abscess ED Disposition Clinical Impression: Hypertension, Skin abscess, Morbid obesity Disposition: DC-01 TO HOME OR SELFCARE Is pt being admited?: No Does the pt Need Aspirin: No Condition: Stable Instructions: Hypertension (ED), Abscess (ED) Additional Instructions: CONTINUE HOME MEDS MONITOR YOUR BLOOD PRESSURE FOR IT WAS ELEVATED TODAY MEDS ORDERED SOAK IN EPSOM SALTS WE DISCUSSED FOLLOW UP WITH PCP IN 48 HOURS BE SURE THIS IS HEALING WELL Referrals: [facility] [Outside] - 3-5 Days Time of Disposition: 11:55
[2019-06-25] MEDS ORDERED: cephALEXin 500 MG CAP PO ONE (12:01)
[2019-06-25] MEDS ORDERED: IBUPROFEN 800 MG TAB PO ONE (12:01)
[2019-06-25] MEDS ORDERED: NEOMY 3.5 MG/BACIT 400 UNITS/POLY B 5000 UNITS/GM OINT PACKET TP ONE (12:01)
[2019-06-25] MEDS ORDERED: predniSONE 20 MG TAB PO ONE (12:04)
== END 2019-06-25 12:59 | disposition home or self-care (01) ==
LOC: ED 09:35
DX: L02.415 Cutaneous abscess of right lower limb (principal); E66.01 Morbid (severe) obesity due to excess calories; M19.90 Unspecified osteoarthritis, unspecified site; F17.200 Nicotine dependence, unspecified, uncomplicated; Z98.890 Other specified postprocedural states; Z79.899 Other long term (current) drug therapy
CPT/HCPCS: 99283; J7512; A6250